=== PATIENT | male | born 1960 | race African-American/Black ===

== ENCOUNTER 2020-10-17 09:39 | Inpatient (IN) ==
[2020-10-17] MEDS ORDERED: NS 0.9% 1000 ml BAG 1,000 ML IV ONE (09:41)
[2020-10-17] MEDS ORDERED: Iodixanol (CONTRAST) 320 MG/ML 100 ML SDV IV ONE (09:55)
[2020-10-17 10:16] LABS: ABS Eosinophils 0.1 10^3/ul (0-0.6); ABS Lymphocytes 1.3 10^3/ul (1.0-4.8); ABS Monocytes 0.6 10^3/ul (0-0.8); ABS Neutrophils 6.1 10^3/ul (1.5-7.7); Eosinophil % 1.4 %; Hematocrit 42 % (42-52); Hemoglobin 14.9 g/dL (14.0-18.0); Lymphocyte % 16.1 %; Mean Corpuscular HGB Conc 35 g/dL (31-36); Mean Corpuscular Hemoglobin 30 pg (27-31); Mean Corpuscular Volume 85 fL (80-94); Mean Platelet Volume 8.2 fL (7.4-10.4); Nucleated Red Blood Cells % 0.1; Platelet Count 265 10^3/uL (150-450); Red Blood Count 4.98 10^6 /uL (4.18-5.48); Red Cell Distribution Width 14 % (10-15); White Blood Count 8.1 10^3/uL (3.5-10.8)
[2020-10-17 10:33] LABS: ALT 12 U/L (7-52); AST 13 U/L (13-39); Albumin 3.9 g/dL (3.2-5.2); Albumin/Globulin Ratio 1.2 (1-3); Alkaline Phosphatase 88 U/L (35-149); Anion Gap 8 mmol/L (2-11); Blood Urea Nitrogen 8 mg/dL (6-24); CO2 Carbon Dioxide 22 mmol/L (22-32); Calcium 8.9 mg/dL (8.6-10.3); Chloride 108 mmol/L (101-111); Cholesterol 130 mg/dL; EGFR African American 118.5 (>60); Globulin 3.3 g/dL (2-4); Glucose 108 mg/dL (70-100); HDL Cholesterol 28.9 mg/dL; LDL Cholesterol 86 mg/dL; Potassium 3.8 mmol/L (3.5-5.0); Sodium 138 mmol/L (135-145); Total Protein 7.2 g/dL (6.4-8.9); Triglycerides 76 mg/dL
[2020-10-17 10:37] LABS: Troponin I 0.03 ng/mL (<0.03)
[2020-10-17 10:38] LABS: Activated Partial Thrombo Time 20.2 seconds (26.0-38.0); INR 1.11 (0.86-1.15)
[2020-10-17 11:24] LABS: Urine Appearance Clear; Urine Bilirubin Negative (Negative); Urine Blood Negative (Negative); Urine Color Straw; Urine Glucose Negative (Negative); Urine Ketones Negative (Negative); Urine Nitrite Negative (Negative); Urine Protein Negative (Negative); Urine Specific Gravity 1.025 (1.002-1.030); Urine Urobilinogen Negative (Negative)
[2020-10-17 15:58] LABS: Troponin I 0.03 ng/mL (<0.03)
[2020-10-17] MEDS: NS 0.9% 1000 ml BAG 1,000 ML IV SCH (16:11)
[2020-10-17] MEDS: Ondansetron 4 mg VIAL 2 MG/ML 2 ml VIAL IV PRN ×2 (16:39→22:28)
[2020-10-17] MEDS: Heparin 5000 UNITS/ML 1 mL VIAL SUBCUT SCH ×2 (16:39→22:25)
[2020-10-18] MEDS: NS 0.9% 1000 ml BAG 1,000 ML IV SCH (03:38)
[2020-10-18 04:21] LABS: ABS Eosinophils 0.1 10^3/ul (0-0.6); ABS Monocytes 0.6 10^3/ul (0-0.8); Eosinophil % 1.4 %; Hematocrit 42 % (42-52); Hemoglobin 14.2 g/dL (14.0-18.0); Lymphocyte % 25.3 %; Mean Corpuscular HGB Conc 34 g/dL (31-36); Mean Corpuscular Hemoglobin 29 pg (27-31); Mean Corpuscular Volume 87 fL (80-94); Mean Platelet Volume 8.3 fL (7.4-10.4); Platelet Count 263 10^3/uL (150-450); Red Blood Count 4.85 10^6 /uL (4.18-5.48); Red Cell Distribution Width 14 % (10-15); White Blood Count 7.8 10^3/uL (3.5-10.8)
[2020-10-18 04:36] LABS: Calcium 8.5 mg/dL (8.6-10.3); EGFR African American 127.7 (>60); EGFR Non-African American 105.5 (>60); HDL Cholesterol 26.9 mg/dL; Potassium 3.3 mmol/L (3.5-5.0)
[2020-10-18] MEDS: Heparin 5000 UNITS/ML 1 mL VIAL SUBCUT SCH ×3 (06:00→21:16)
[2020-10-18] MEDS: KCL 20 MEQ/100 ML IVPREMIX 20 MEQ/100 ML BAG IV SCH ×3 (09:42→14:49)
[2020-10-18] MEDS: Nicotine PATCH 21 MG/24 HR PATCH TRANSDERM SCH (10:06)
[2020-10-19] MEDS: NS 0.9% 1000 ml BAG 1,000 ML IV SCH ×2 (02:13→12:32)
[2020-10-19] MEDS: Heparin 5000 UNITS/ML 1 mL VIAL SUBCUT SCH ×3 (05:57→20:29)
[2020-10-19 06:56] LABS: ABS Eosinophils 0.2 10^3/ul (0-0.6); ABS Monocytes 0.5 10^3/ul (0-0.8); ABS Neutrophils 4.2 10^3/ul (1.5-7.7); Eosinophil % 2.3 %; Hematocrit 43 % (42-52); Hemoglobin 15.1 g/dL (14.0-18.0); Lymphocyte % 29.5 %; Mean Corpuscular HGB Conc 35 g/dL (31-36); Mean Corpuscular Hemoglobin 30 pg (27-31); Mean Corpuscular Volume 86 fL (80-94); Mean Platelet Volume 8.4 fL (7.4-10.4); Nucleated Red Blood Cells % 0.2; Platelet Count 246 10^3/uL (150-450); Red Blood Count 5.05 10^6 /uL (4.18-5.48); Red Cell Distribution Width 14 % (10-15); White Blood Count 6.9 10^3/uL (3.5-10.8)
[2020-10-19 07:08] LABS: Calcium 8.6 mg/dL (8.6-10.3); EGFR African American 120.3 (>60); EGFR Non-African American 99.4 (>60); Potassium 3.8 mmol/L (3.5-5.0)
[2020-10-19] MEDS: Nicotine PATCH 21 MG/24 HR PATCH TRANSDERM SCH (08:27)
[2020-10-19] MEDS ORDERED: Perflutren Lipid Microsphere 3 ML VIAL ONE (09:36)
[2020-10-19 10:46] LABS: TSH Ultra Thyroid Stim Horm 0.7 mcIU/mL (0.34-5.60)
[2020-10-19] MEDS: Nicotine GUM 4MG FRUIT FLAVOR PO PRN ×2 (14:58→20:29)
[2020-10-19] MEDS: Dextran 70/Hypromellose Tears Eye Drops 15 ml BTL (for Artificials Tears) RIGHT EYE PRN ×2 (18:07→20:00)
[2020-10-20 00:24] LABS: Anaplasma phagocytophilum Negative (Negative); B. miyamotoi PCR, B Negative (Negative); Babesia divergens/MO-1 Negative (Negative); Babesia ducani Negative (Negative); Ehrlichia chaffeensis Negative (Negative); Ehrlichia ewingii/canis Negative (Negative); Ehrlichia muris eauclairensis Negative (Negative)
[2020-10-20] MEDS: Heparin 5000 UNITS/ML 1 mL VIAL SUBCUT SCH ×3 (05:49→20:15)
[2020-10-20] MEDS: Dextran 70/Hypromellose Tears Eye Drops 15 ml BTL (for Artificials Tears) RIGHT EYE PRN ×4 (05:49→18:26)
[2020-10-20 06:22] LABS: ABS Eosinophils 0.2 10^3/ul (0-0.6); ABS Lymphocytes 2.1 10^3/ul (1.0-4.8); ABS Monocytes 0.7 10^3/ul (0-0.8); ABS Neutrophils 5.9 10^3/ul (1.5-7.7); Eosinophil % 1.9 %; Hematocrit 43 % (42-52); Hemoglobin 14.9 g/dL (14.0-18.0); Lymphocyte % 23.5 %; Mean Corpuscular HGB Conc 35 g/dL (31-36); Mean Corpuscular Hemoglobin 30 pg (27-31); Mean Corpuscular Volume 86 fL (80-94); Mean Platelet Volume 8.1 fL (7.4-10.4); Platelet Count 262 10^3/uL (150-450); Red Blood Count 4.99 10^6 /uL (4.18-5.48); Red Cell Distribution Width 14 % (10-15); White Blood Count 8.9 10^3/uL (3.5-10.8)
[2020-10-20 06:49] LABS: Calcium 8.9 mg/dL (8.6-10.3); EGFR African American 115.2 (>60); EGFR Non-African American 95.2 (>60); Potassium 3.9 mmol/L (3.5-5.0)
[2020-10-20] MEDS: Nicotine PATCH 21 MG/24 HR PATCH TRANSDERM SCH (08:54)
[2020-10-20] MEDS: Nicotine GUM 4MG FRUIT FLAVOR PO PRN ×2 (12:20→18:26)
[2020-10-20] MEDS ORDERED: Polyethylene Glycol 3350 17 GM PACKET PO PRN (17:33)
[2020-10-21] MEDS: Dextran 70/Hypromellose Tears Eye Drops 15 ml BTL (for Artificials Tears) RIGHT EYE PRN ×2 (04:57→09:31)
[2020-10-21] MEDS: Heparin 5000 UNITS/ML 1 mL VIAL SUBCUT SCH (05:54)
[2020-10-21] MEDS: Nicotine PATCH 21 MG/24 HR PATCH TRANSDERM SCH (09:31)
[2020-10-21] MEDS: Nicotine GUM 4MG FRUIT FLAVOR PO PRN (09:32)
[2020-10-21 10:32] VITALS: BP 148/77
== END 2020-10-21 09:52 | DRG 45 ==
LOC: ED 09:39 → MEDTELE 13:58
PROVIDERS: ADMIT Internal Medicine; ATTEND Hospitalist

== ENCOUNTER 2020-10-21 07:17 | Inpatient (IN) ==
[2020-10-21] MEDS ORDERED: Senna TAB 8.6 mg TAB PO PRN (12:56)
[2020-10-21] MEDS ORDERED: Magnesium Hydroxide LIQ 30 ML UDC PO PRN (13:03)
[2020-10-21] MEDS: Heparin 5000 UNITS/ML 1 mL VIAL SUBCUT SCH ×2 (14:45→21:26)
[2020-10-22] MEDS: Heparin 5000 UNITS/ML 1 mL VIAL SUBCUT SCH ×3 (06:11→21:03)
[2020-10-22] MEDS: Nicotine PATCH 14 MG/24 HR PATCH TRANSDERM SCH (09:40)
[2020-10-23] MEDS: Heparin 5000 UNITS/ML 1 mL VIAL SUBCUT SCH ×3 (05:41→21:31)
[2020-10-23 07:00] LABS: ABS Basophils 0.1 10^3/ul (0-0.2); ABS Eosinophils 0.3 10^3/ul (0-0.6); ABS Lymphocytes 2.1 10^3/ul (1.0-4.8); ABS Monocytes 0.7 10^3/ul (0-0.8); ABS Neutrophils 5.8 10^3/ul (1.5-7.7); Eosinophil % 3.3 %; Hematocrit 42 % (42-52); Hemoglobin 14.4 g/dL (14.0-18.0); Lymphocyte % 23.1 %; Mean Corpuscular HGB Conc 34 g/dL (31-36); Mean Corpuscular Hemoglobin 30 pg (27-31); Mean Corpuscular Volume 86 fL (80-94); Platelet Count 239 10^3/uL (150-450); Red Blood Count 4.86 10^6 /uL (4.18-5.48); Red Cell Distribution Width 15 % (10-15)
[2020-10-23 07:21] LABS: Albumin/Globulin Ratio 1.4 (1-3); EGFR Non-African American 92.6 (>60); Globulin 2.8 g/dL (2-4); Potassium 4.1 mmol/L (3.5-5.0); Total Bilirubin 0.7 mg/dL (0.2-1.0); Total Protein 6.8 g/dL (6.4-8.9)
[2020-10-23] MEDS: Nicotine PATCH 14 MG/24 HR PATCH TRANSDERM SCH (07:36)
[2020-10-23] MEDS ORDERED: Calcium Carb (TUMS) 500 mg CHEW TAB PO PRN (10:51)
[2020-10-24] MEDS: Heparin 5000 UNITS/ML 1 mL VIAL SUBCUT SCH ×3 (06:03→21:43)
[2020-10-24] MEDS: Nicotine PATCH 14 MG/24 HR PATCH TRANSDERM SCH (09:04)
[2020-10-24] MEDS: Nicotine GUM 4MG FRUIT FLAVOR PO PRN (21:45)
[2020-10-25] MEDS: Heparin 5000 UNITS/ML 1 mL VIAL SUBCUT SCH ×3 (05:52→21:33)
[2020-10-25] MEDS: Nicotine PATCH 14 MG/24 HR PATCH TRANSDERM SCH (09:16)
[2020-10-25] MEDS: Nicotine GUM 4MG FRUIT FLAVOR PO PRN (21:34)
[2020-10-26] MEDS: Heparin 5000 UNITS/ML 1 mL VIAL SUBCUT SCH ×3 (06:07→21:34)
[2020-10-26] MEDS: Nicotine PATCH 14 MG/24 HR PATCH TRANSDERM SCH (08:11)
[2020-10-26] MEDS: Nicotine GUM 4MG FRUIT FLAVOR PO PRN (15:12)
[2020-10-26] MEDS: Dextran 70/Hypromellose Tears Eye Drops 15 ml BTL (for Artificials Tears) RIGHT EYE PRN (17:23)
[2020-10-27] MEDS: Heparin 5000 UNITS/ML 1 mL VIAL SUBCUT SCH ×3 (06:11→20:33)
[2020-10-27] MEDS: Nicotine PATCH 14 MG/24 HR PATCH TRANSDERM SCH (12:12)
[2020-10-28] MEDS: Heparin 5000 UNITS/ML 1 mL VIAL SUBCUT SCH ×3 (06:11→20:33)
[2020-10-28] MEDS: Nicotine PATCH 14 MG/24 HR PATCH TRANSDERM SCH (14:01)
[2020-10-29] MEDS: Heparin 5000 UNITS/ML 1 mL VIAL SUBCUT SCH ×3 (05:27→21:47)
[2020-10-29] MEDS: Dextran 70/Hypromellose Tears Eye Drops 15 ml BTL (for Artificials Tears) RIGHT EYE PRN (05:55)
[2020-10-29] MEDS: Nicotine PATCH 14 MG/24 HR PATCH TRANSDERM SCH (10:23)
[2020-10-30] MEDS: Heparin 5000 UNITS/ML 1 mL VIAL SUBCUT SCH ×3 (05:58→21:21)
[2020-10-30 06:09] LABS: ABS Eosinophils 0.3 10^3/ul (0-0.6); ABS Lymphocytes 2.2 10^3/ul (1.0-4.8); ABS Monocytes 0.7 10^3/ul (0-0.8); ABS Neutrophils 4.4 10^3/ul (1.5-7.7); Eosinophil % 3.4 %; Hematocrit 42 % (42-52); Hemoglobin 14.2 g/dL (14.0-18.0); Lymphocyte % 28.6 %; Mean Corpuscular HGB Conc 34 g/dL (31-36); Mean Corpuscular Hemoglobin 30 pg (27-31); Mean Corpuscular Volume 87 fL (80-94); Nucleated Red Blood Cells % 0.1; Platelet Count 260 10^3/uL (150-450); Red Blood Count 4.81 10^6 /uL (4.18-5.48); Red Cell Distribution Width 14 % (10-15); White Blood Count 7.5 10^3/uL (3.5-10.8)
[2020-10-30 06:25] LABS: Albumin 3.9 g/dL (3.2-5.2); Albumin/Globulin Ratio 1.3 (1-3); Calcium 8.9 mg/dL (8.6-10.3); EGFR African American 102.1 (>60); EGFR Non-African American 84.4 (>60); Globulin 2.9 g/dL (2-4); Potassium 4.1 mmol/L (3.5-5.0); Total Bilirubin 0.7 mg/dL (0.2-1.0); Total Protein 6.8 g/dL (6.4-8.9)
[2020-10-30] MEDS: Nicotine PATCH 14 MG/24 HR PATCH TRANSDERM SCH (10:17)
[2020-10-31] MEDS: Heparin 5000 UNITS/ML 1 mL VIAL SUBCUT SCH ×3 (06:10→21:27)
[2020-10-31] MEDS: Nicotine PATCH 14 MG/24 HR PATCH TRANSDERM SCH (09:00)
[2020-11-01] MEDS: Heparin 5000 UNITS/ML 1 mL VIAL SUBCUT SCH ×3 (05:41→22:11)
[2020-11-01] MEDS: Nicotine PATCH 14 MG/24 HR PATCH TRANSDERM SCH (08:43)
[2020-11-01] MEDS: Nicotine GUM 4MG FRUIT FLAVOR PO PRN (08:46)
[2020-11-02] MEDS: Heparin 5000 UNITS/ML 1 mL VIAL SUBCUT SCH ×3 (05:36→21:47)
[2020-11-02] MEDS: Nicotine PATCH 14 MG/24 HR PATCH TRANSDERM SCH (07:46)
[2020-11-02] MEDS: Ciprofloxacin 0.3% OPTH.SOL BTL RIGHT EYE SCH (20:21)
[2020-11-03] MEDS: Ciprofloxacin 0.3% OPTH.SOL BTL RIGHT EYE SCH ×7 (00:30→23:53)
[2020-11-03] MEDS: Nicotine GUM 4MG FRUIT FLAVOR PO PRN (05:06)
[2020-11-03] MEDS: Heparin 5000 UNITS/ML 1 mL VIAL SUBCUT SCH ×3 (05:06→20:45)
[2020-11-03] MEDS: Nicotine PATCH 14 MG/24 HR PATCH TRANSDERM SCH (08:12)
[2020-11-04] MEDS: Ciprofloxacin 0.3% OPTH.SOL BTL RIGHT EYE SCH ×6 (04:18→23:59)
[2020-11-04] MEDS: Heparin 5000 UNITS/ML 1 mL VIAL SUBCUT SCH ×3 (05:16→21:06)
[2020-11-04] MEDS: Nicotine PATCH 14 MG/24 HR PATCH TRANSDERM SCH (10:06)
[2020-11-05] MEDS: Ciprofloxacin 0.3% OPTH.SOL BTL RIGHT EYE SCH ×5 (04:17→20:19)
[2020-11-05] MEDS: Heparin 5000 UNITS/ML 1 mL VIAL SUBCUT SCH ×3 (05:56→21:06)
[2020-11-05] MEDS: Nicotine PATCH 14 MG/24 HR PATCH TRANSDERM SCH (10:12)
[2020-11-06] MEDS: Ciprofloxacin 0.3% OPTH.SOL BTL RIGHT EYE SCH ×3 (00:25→08:33)
[2020-11-06] MEDS: Heparin 5000 UNITS/ML 1 mL VIAL SUBCUT SCH (05:26)
[2020-11-06 06:04] VITALS: BP 133/86
[2020-11-06 06:36] LABS: ABS Eosinophils 0.3 10^3/ul (0-0.6); ABS Lymphocytes 1.9 10^3/ul (1.0-4.8); ABS Monocytes 0.6 10^3/ul (0-0.8); ABS Neutrophils 4.8 10^3/ul (1.5-7.7); Eosinophil % 3.3 %; Hematocrit 41 % (42-52); Mean Corpuscular HGB Conc 34 g/dL (31-36); Mean Corpuscular Hemoglobin 30 pg (27-31); Mean Corpuscular Volume 88 fL (80-94); Nucleated Red Blood Cells % 0.1; Platelet Count 260 10^3/uL (150-450); Red Blood Count 4.71 10^6 /uL (4.18-5.48); Red Cell Distribution Width 14 % (10-15); White Blood Count 7.7 10^3/uL (3.5-10.8)
[2020-11-06 06:57] LABS: Albumin 3.8 g/dL (3.2-5.2); Albumin/Globulin Ratio 1.3 (1-3); Calcium 8.6 mg/dL (8.6-10.3); EGFR African American 104.8 (>60); EGFR Non-African American 86.6 (>60); Globulin 2.9 g/dL (2-4); Potassium 4.1 mmol/L (3.5-5.0); Total Bilirubin 0.5 mg/dL (0.2-1.0); Total Protein 6.7 g/dL (6.4-8.9)
[2020-11-06] MEDS: Nicotine PATCH 14 MG/24 HR PATCH TRANSDERM SCH (08:33)
== END 2020-11-06 13:22 | disposition home or self-care (01) | DRG 58 ==
LOC: PMRU 10:29
PROVIDERS: ADMIT Physical Medicine & Rehabilitation; ATTEND Physical Medicine & Rehabilitation